=== PATIENT | female | born 1960 | race American Indian/Alaskan Native ===

== ENCOUNTER → 2018-09-25 | Outpatient (CLI) | payer BC | LOC: RAD 09:36 ==

== ENCOUNTER 2018-10-05 14:24 | Emergency (ER) | payer BC ==
[2018-10-05 15:38] VITALS: TEMP 98.2; BMI 28.9
[2018-10-05] MEDS ORDERED: Sodium Chloride 0.9% 1,000 ML IV STA (15:54)
[2018-10-05] MEDS ORDERED: DiphenhydrAMINE 50 mg/ml Inj IVP STA (16:20)
--- NOTE | 2018-10-05 16:21 | ED PDOC ---
Arrival/HPI - General Chief Complaint: Dizziness/Lightheaded Time Seen by Provider: 10/05/18 14:45 Historian: Patient - History of Present Illness Narrative History of Present Illness (Text): 10/05/18 16:21 58 y/o female with PMH of HTN presents to the ED c/o dull left-sided posterior headache x 1 day. She is worried that her high blood pressure may be causing her headache, prompting visit to ED. She states her pressure typically runs 140-150/80-90. Pt took advil [employer] without relief. Her HTN is managed by Dr. Melendez. States she is compliant with her medication. Also had one 30 second episode of lightheadedness while sitting prior to arrival that resolved without intervention. Admits that she has not had much to eat today. Denies fevers, chills, neck pain/stiffness, vertigo, vision changes, chest pain, palpitations, SOB, nausea, vomiting, abdominal pain, urinary symptoms, back pain, numbness, weakness, paresthesias, difficulty speaking, difficulty walking, cough, sinus congestion, eye pain, or any other associated symptoms. Time/Duration: 24 hours Symptom Onset: Gradual Symptom Course: Unchanged Quality: Dullness Activities at Onset: Rest Context: Sitting Past Medical History - Provider Review Nursing Documentation Reviewed: Yes - Infectious Disease Hx of Infectious Diseases: None - Cardiac Hx Cardiac Disorders: Yes Hx Hypertension: Yes - Pulmonary Hx Respiratory Disorders: No - Neurological Hx Neurological Disorder: No - HEENT Hx HEENT Disorder: No - Renal Hx Renal Disorder: No - Endocrine/Metabolic Hx Endocrine Disorders: No - Hematological/Oncological Hx Blood Disorders: No - Integumentary Hx Dermatological Disorder: No - Musculoskeletal/Rheumatological Hx Musculoskeletal Disorders: No - Gastrointestinal Hx Gastrointestinal Disorders: No - Genitourinary/Gynecological Hx Genitourinary Disorders: No - Psychiatric Hx Psychophysiologic Disorder: No Hx Substance Use: No - Surgical History Hx Section: Yes (x 1) Hx Eye Surgery: Yes (Left Eye) Hx Orthopedic Surgery: Yes (B/L) Family/Social History - Physician Review Nursing Documentation Reviewed: Yes Family/Social History: No Known Family HX Smoking Status: Never Smoked Hx Alcohol Use: Yes Frequency of alcohol use: Socially Hx Substance Use: No Allergies/Home Meds Allergies/Adverse Reactions: Allergies No Known Allergies Allergy (Verified 10/05/18 15:38) Review of Systems - Review of Systems Constitutional: Normal. absent: Fatigue, Fevers Eyes: Normal. absent: Vision Changes, Photophobia, Eye Pain ENT: Normal. absent: Sore Throat, Sinus Congestion Respiratory: Normal. absent: SOB, Cough Cardiovascular: Normal. absent: Chest Pain, Palpitations, Syncope Gastrointestinal: Normal. absent: Abdominal Pain, Nausea, Vomiting Genitourinary Female: Normal. absent: Dysuria, Frequency Musculoskeletal: Normal. absent: Arthralgias, Back Pain Skin: Normal. absent: Rash Neurological: Headache, Other (lightheadedness). absent: Focal Weakness, Disequilibrium Endocrine: Normal Hemo/Lymphatic: Normal Psychiatric: Normal Physical Exam Vital Signs Reviewed: Yes Vital Signs Temp Pulse Resp BP Pulse Ox 10/05/18 15:38 98.2 F 85 18 157/88 H 98 Temperature: Afebrile Blood Pressure: Hypertensive Pulse: Regular Respiratory Rate: Normal Appearance: Positive for: Well-Appearing, Non-Toxic, Comfortable Pain Distress: None Mental Status: Positive for: Alert and Oriented X 3 - Systems Exam Head: Present: Atraumatic, Normocephalic Pupils: Present: PERRL Extroacular Muscles: Present: EOMI Conjunctiva: Present: Normal Ears: Present: Normal, NORMAL TM Mouth: Present: Moist Mucous Membranes Pharnyx: Present: Normal. No: ERYTHEMA, EXUDATE, TONSILS ENLARGED Neck: Present: Normal Range of Motion. No: Meningeal Signs, MIDLINE TENDERNESS, Paraspinal Tenderness Respiratory/Chest: Present: Clear to Auscultation, Good Air Exchange. No: Respiratory Distress, Accessory Muscle Use Cardiovascular: Present: Regular Rate and Rhythm, Normal S1, S2, Peripheal Pulses Present Abdomen: Present: Normal Bowel Sounds. No: Tenderness, Distention, Peritoneal Signs, Rebound, Guarding Back: Present: Normal Inspection. No: CVA Tenderness, Midline Tenderness, Paraspinal Tenderness Upper Extremity: Present: Normal Inspection, Normal ROM, NORMAL PULSES, Neurovascularly Intact, Capillary Refill < 2s. No: Cyanosis, Edema, Temperature Abnormalties Lower Extremity: Present: Normal Inspection, NORMAL PULSES, Normal ROM, Neurovascularly Intact, Capillary Refill < 2 s. No: Edema, Temperature Abnormalties Neurological: Present: GCS=15, CN II-XII Intact, Speech Normal, Motor Func Grossly Intact, Normal Sensory Function, Normal Cerebellar Funct, Gait Normal Skin: Present: Warm, Dry, Normal Color. No: Rashes Lymphatic: No: Cervical Adenopathy Psychiatric: Present: Alert, Oriented x 3, Normal Insight, Normal Concentration, Normal Affect, Normal Mood Medical Decision Making ED Course and Treatment: Initial Plan: * CBC, CMP * Mg * Coags * TSH, T4 * Troponin * Head CT * EKG * IVF * Tylenol * Benadryl Bloodwork reviewed, unremarkable EKG NSR at 92 with 1st degree AV block, No STEMI, nonspecific ST/T wave changes; troponin negative Head CT shows hyperdense mass in left frontal lobe suggestive of meningioma, no hemorrhage Pt reports resolution of headache with medications. No episodes of dizziness or lightheadedness in ED. No focal neurological deficits. Case discussed with ED attending Dr. Linder, who recommends discharge home with outpatient neurology followup for outpatient MRI. No further management in ED. 18:[address] Melendez, who manages patient's blood pressure. States that patient can followup in the office and he will write a prescription for a MRI and ensure pt follows with neurology or neurosurgery. Faxed copy of report to office. [phone]. Pt is to go directly to his office to obtain script for MRI. Pt verbalized understanding that she needs to schedule appointment with outpatient testing for study and follow with Dr. Melendez for results. Family member (daughter) also verbalizes understanding of instructions and plan of care. Given neurosurgery and neurology followup in addition to Dr. Melendez. Diagnostic testing results and plan of care discussed with patient. Strict instructions given regarding prescription use, importance of followup, and signs/symptoms to return to ER including or worsening headache, dizziness, nausea, vomiting, any other new/worsening symptoms. Pt verbalized understanding of discussion. Patient is A&Ox3, ambulating with steady gait, with vital signs s table for discharge. - Lab Interpretations Lab Results: 10/05/18 16:30 10/05/18 16:30 Lab Results 10/05/18 17:20: Urine Opiates Screen Negative, Urine Methadone Screen Negative, Ur Barbiturates Screen Negative, Ur Phencyclidine Scrn Negative, Ur Amphetamines Screen Negative, U Benzodiazepines Scrn Negative, U Oth Cocaine Metabols Negative, U Cannabinoids Screen Negative 10/05/18 17:20: Urine Color Yellow, Urine Appearance Clear, Urine pH 7.0, Ur Specific [place] 1.010, Urine Protein Negative, Urine Glucose (UA) Negative, Urine Ketones Negative, Urine Blood Small H, Urine Nitrate Negative, Urine Bilirubin Negative, Urine Urobilinogen 0.2, Ur Leukocyte Esterase Negative, Urine RBC 1 - 3 H, Urine WBC None, Ur Epithelial Cells 0 - 2 10/05/18 16:30: Troponin I 0.01 10/05/18 16:30: Free T4 1.09, TSH 3rd Generation 0.84 10/05/18 16:30: Sodium 139, Potassium 3.7, Chloride 103, Carbon Dioxide 27, Anion Gap 13, BUN 20, Creatinine 0.7, Est GFR ( Amer) > 60, Est GFR (Non- Af Amer) > 60, Random Glucose 107, Calcium 9.6, Magnesium 2.2, Total Bilirubin 0.3, AST 20, ALT 21, Alkaline Phosphatase 112, Total Protein 8.0, Albumin 4.3, Globulin 3.7, Albumin/Globulin Ratio 1.2 10/05/18 16:30: PT 12.2, INR 1.10, APTT 32.7 10/05/18 16:30: WBC 5.3, RBC 4.62, Hgb 14.1, Hct 39.8, MCV 86.1, MCH 30.5, MCHC 35.4, RDW 13.0, Plt Count 159, MPV 11.4 H, Neut % (Auto) 57.3, Lymph % (Auto) 36.4 H, [place] % (Auto) 5.3, Eos % (Auto) 0.8 L, Baso % (Auto) 0.2, Lymph # (Auto) 1.9, [place] # (Auto) 0.3, Eos # (Auto) 0.0, Baso # (Auto) 0.01, Absolute Neuts (auto) 3.01 I have reviewed the lab results: Yes Interpretation: All labs normal - RAD Interpretation Narrative RAD Interpretations (Text): Head CT: IMPRESSION: 1.3cmx1.5cm hyperdense extra-axial mass involving the left inferior frontal lobe with associated edema; mass favored to represent a meningioma. Recommend further evaluation with MRI without and with IV contrast. Radiology Orders: 10/05/18 15:54 HEAD W/O CONTRAST [CT] Stat Chemical Dependency Therapist: Radiologist - EKG Interpretation EKG Interpretation (Text): Rate 92; NSR with 1st degree AV block; No STEMI or other signs of ischemia Interpreted by ED Physician: Yes Type: 12 lead EKG - Medication Orders Current Medication Orders: Diphenhydramine HCl (Benadryl) 25 mg IVP STAT STA Stop: 10/05/18 16:21 Sodium Chloride (Sodium Chloride 0.9%) 1,000 mls @ 999 mls/hr IV .Q1H1M STA Stop: 10/05/18 16:54 Discontinued Medications Acetaminophen (Tylenol 325mg Tab) 975 mg PO STAT STA Stop: 10/05/18 15:55 Disposition/Present on Arrival - Present on Arrival Any Indicators Present on Arrival: No History of DVT/PE: No History of Uncontrolled Diabetes: No Urinary Catheter: No History of Decub. Ulcer: No History Surgical Site Infection Following: None - Disposition Have Diagnosis and Disposition been Completed?: Yes Diagnosis: Brain mass, HTN (hypertension), Headache Disposition: HOME/ ROUTINE Disposition Time: 18:18 Condition: STABLE Discharge Instructions (ExitCare): Meningioma Additional Instructions: Followup with Dr. Melendez as scheduled, obtain prescription for brain MRI today Tylenol/ibuprofen as needed for headache Increase fluids Followup with neurology and neursurgery within 2 days Followup with lcinic or primary within 2 days Return to ER with any new/worsening symptoms Referrals: Elpidio Holder MD [Staff Provider] - Follow up with primary Cash Meléndez MD [Staff Provider] - Follow up with primary Claude Melendez MD [Staff Provider] - Follow up with primary Forms: [employer] (Danish), WORK NOTE
[2018-10-05 16:37] LABS: BASO # 0.01 K/mm3 (0.0-2.0); BASO % 0.2 % (0.0-3.0); EOS % 0.8 % (1.5-5.0); HEMOGLOBIN 14.1 g/dL (12.0-16.0); LYMPH # 1.9 (1.2-3.4); LYMPH % 36.4 % (22.0-35.0); MEAN CELL VOLUME 86.1 fl (80.0-105.0); MEAN CORPUSCULAR HEMOGLOBIN 30.5 pg (25.0-35.0); MEAN CORPUSCULAR HGB CONC 35.4 g/dl (31.0-37.0); MEAN PLATELET VOLUME 11.4 fl (7.0-11.0); MONO # 0.3 (0.1-0.6); MONO % 5.3 % (1.0-6.0); RBC 4.62 10^6/uL (3.5-6.1); WHITE BLOOD COUNT 5.3 10^3/uL (4.5-11.0)
[2018-10-05 16:47] LABS: INR 1.1; PARTIAL THROMBOPLASTIN TIME 32.7 Seconds (26.9-38.3); PROTHROMBIN TIME 12.2 SECONDS (9.4-12.5)
[2018-10-05 16:48] LABS: ALB/GLOB RATIO 1.2 (1.1-1.8); ALBUMIN 4.3 g/dL (3.0-4.8); ALT/SGPT 21 U/L (7-56); AST/SGOT 20 U/L (14-36); BLOOD UREA NITROGEN 20 mg/dL (7-21); CALCIUM 9.6 mg/dL (8.4-10.5); GFR NON-AFRICAN AMERICAN > 60
[2018-10-05 17:09] LABS: FREE T4 1.09 ng/dL (0.78-2.19)
--- NOTE | 2018-10-05 17:12 | CT ---
Date of service: 10/05/2018 PROCEDURE: CT HEAD WITHOUT CONTRAST. HISTORY: headache COMPARISON: None available. TECHNIQUE: Axial computed tomography images were obtained through the head/brain without intravenous contrast. Radiation dose: Total exam DLP = 796.18 mGy-cm. This CT exam was performed using one or more of the following dose reduction techniques: Automated exposure control, adjustment of the mA and/or kV according to patient size, and/or use of iterative reconstruction technique. FINDINGS: HEMORRHAGE: No intracranial hemorrhage. BRAIN: 1.3 x 1.5 cm hyperdense extra-axial mass involving the left inferior frontal lobe with associated edema; mass favored to represent a meningioma. No evidence of midline shift. The miller-white matter differentiation appears intact. Please note that MRI with diffusion imaging is more sensitive in the detection of acute ischemic event. Please note that MRI with diffusion imaging is more sensitive in the detection of acute ischemic event. VENTRICLES: No hydrocephalus. CALVARIUM: Unremarkable. PARANASAL SINUSES: Unremarkable as visualized. No significant inflammatory changes. MASTOID AIR CELLS: Unremarkable as visualized. No inflammatory changes. OTHER FINDINGS: None. IMPRESSION: 1.3 x 1.5 cm hyperdense extra-axial mass involving the left inferior frontal lobe with associated edema; mass favored to represent a meningioma. Recommend further evaluation with MRI without and with IV contrast.
[2018-10-05 17:29] LABS: URINE APPEARANCE CLEAR (CLEAR); URINE BILIRUBIN NEGATIVE (NEGATIVE); URINE BLOOD SMALL (NEGATIVE); URINE COLOR YELLOW (YELLOW); URINE GLUCOSE (UA) NEGATIVE (NEGATIVE); URINE LEUKOCYTE ESTERASE NEGATIVE Leu/uL (NEGATIVE); URINE PROTEIN NEGATIVE mg/dL (<30 mg/dL); URINE UROBILINOGEN 0.2 E.U./dL (<1 E.U./dL)
[2018-10-05 17:37] LABS: URINE EPITHELIAL CELLS 0 - 2 /hpf (0-5)
[2018-10-05 18:01] LABS: BARBITURATES, UR NEGATIVE (NEGATIVE); BENZODIAZEPINES, UR NEGATIVE (NEGATIVE); OPIATES, UR NEGATIVE (NEGATIVE); PHENCYCLIDINE, UR NEGATIVE (NEGATIVE)
[2018-10-05 19:08] VITALS: BP 147/79; PULSE 86; RESP 18; O2SAT 98
--- NOTE | 2018-10-05 19:13 | CARD ---
APPROVED REPORT Date of service: 10/05/2018 EKG Measurement Heart [id number] <Conclusion> Sinus rhythm with 1st degree AV block Possible Left atrial enlargement Borderline ECG
== END 2018-10-05 19:09 | disposition home or self-care (01) ==
LOC: ED 14:24
DX: R51 Headache (principal); G93.9 Disorder of brain, unspecified; I10 Essential (primary) hypertension
CPT/HCPCS: 70450; 80053; 81001; 83735; 84439; 84443; 84484; 85025; 85610; 85730; 87086; 93005; 96361; 96374; 96375; 99285; G0480; J1200; J1885; J7030

== ENCOUNTER 2018-10-08 07:34 | Outpatient (CLI) | payer BC | END 2018-10-08 07:35 | disposition home or self-care (01) | LOC: RAD 07:34 ==